=== PATIENT | male | born 1955 | race Caucasian/White ===

== ENCOUNTER 2022-03-07 14:55 | Emergency (ER) | payer OTHER ==
--- NOTE | 2022-03-07 15:32 | ERPHSYRPT ---
- History of Present Illness Time Seen by Provider: 03/07/22 15:15 Source: patient Exam Limitations: no limitations Patient Subjective Stated Complaint: C/O cough and increasing SOB that began around . Patient is seeking treatment today due to the SOB has becom e much worse in the past week with new intermittent sharp pains in both of his mid to lower sides. No pain at this time. Triage Nursing Assessment: Patient brought down to ED from the [facility] in a W/C wearing portable oxgyen at 2L per N/C; patient does not typically utilize oxygen therapy at home. [facility] states patient was sating 89-90% on room air so they applied the 02. Patient sating 94% here on room air; 02 @ 2L reapplied and 02 sats increased to 97% with the 02 therapy. Patient has a dry, non- productive cough. Expiratory wheezing noted to upper lobes and bases are diminished. Breathing is deep but short and labored. 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 Patient was initially evaluated at [facility] and they performed viral studies including COVID, influenza A and B and RSV. These tests were negative per his report. At [facility] clinic his room air oxygenation level was 89-92%. He was then sent to the emergency department for further evaluation management. Patient smokes cigarettes every day. He is on an albuterol inhaler. He denies chest pain. He has no abdominal pain. He has had no nausea vomiting or diarrhea. Timing/Duration: week(s) (3), worse Cough Quality/Degree: moderate, dry cough Possible Cause: no prior episodes Modifying Factors: Improves With: albuterol nebulizer (Improved), coughing, ox ygen Associated Symptoms: cough, shortness of breath, wheezing (Expiratory) Allergies/Adverse Reactions: No Known Drug Allergies Allergy (Verified 03/07/22 15:10) Home Medications: Budesonide/Glycopyr/Formoterol [Breztri Aerosphere Inhaler] 2 puff PO BID 03/07/22 [History] Hx Tetanus, Diphtheria Vaccination/Date Given: Yes (Not tetanus) Hx Influenza Vaccination/Date Given: No Hx Pneumococcal Vaccination/Date Given: No Immunizations Up to Date: Yes Travel Risk - International Travel Have you traveled outside of the country in past 3 weeks: No - Coronavirus Screening Are you exhibiting any of the following symptoms?: Yes Symptoms: Cough: New Onset, Shortness of Breath Close contact with a COVID-19 positive Pt in past 14-21 Days: No - Vaccine Status Have you recieved a Covid-19 vaccination: No - Review of Systems Constitutional: No Symptoms Eyes: No Symptoms Ears, Nose, & Throat: No Symptoms Respiratory: Cough, Dyspnea Cardiac: No Symptoms Abdominal/Gastrointestinal: No Symptoms Genitourinary Symptoms: No Symptoms Musculoskeletal: No Symptoms Skin: No Symptoms Neurological: No Symptoms Psychological: No Symptoms Endocrine: No Symptoms Hematologic/Lymphatic: No Symptoms Immunological/Allergic: No Symptoms All Other Systems: Reviewed and Negative - Past Medical History Pertinent Past Medical History: Yes Respiratory History: COPD - Past Surgical History Past Surgical History: No - Social History Smoking Status: Current every day smoker How long have you smoked: 50 years Exposure to second hand smoke: No Drug Use: none Patient Lives Alone: No - Nursing Vital Signs Nursing Vital Signs: Initial Vital Signs Temperature 98.1 F 03/07/22 14:56 Pulse Rate 87 03/07/22 14:56 Respiratory Rate 18 03/07/22 14:56 Blood Pressure 161/119 03/07/22 14:56 O2 Sat by Pulse Oximetry 94 L 03/07/22 14:56 Pain Scale Pain Intensity 0 - Physical Exam General Appearance: no apparent distress, alert, obese Eye Exam: PERRL/EOMI, eyes nml inspection Ears, Nose, Throat Exam: normal ENT inspection, moist mucous membranes Neck Exam: normal inspection, non-tender, supple, full range of motion Respiratory Exam: wheezing (Mild bilateral expiratory wheezing), No chest tenderness, No respiratory distress Cardiovascular Exam: regular rate/rhythm, normal heart sounds, normal peripheral pulses Gastrointestinal/Abdomen Exam: soft, normal bowel sounds, No tenderness Rectal Exam: not done Back Exam: normal inspection, normal range of motion, No CVA tenderness, No vertebral tenderness Extremity Exam: normal inspection, normal range of motion, pelvis stable Neurologic Exam: alert, oriented x 3, cooperative, software tools build engineer II-XII nml as tested, normal mood/affect, nml cerebellar function, nml station & gait, sensation nml Skin Exam: normal color, warm, dry Lymphatic Exam: No adenopathy SpO2 Interpretation: normal SpO2: 97 O2 Delivery: Room Air - Course Nursing assessment & vital signs reviewed: Yes EKG Interpreted by Me: RATE (88), Sinus Rhythm, NORMAL AXIS, LAFB, Right Bundle Branch Block, Other (BCs. No acute ischemic changes) Ordered Tests: Active Orders 24 hr Category Date Time Status EKG-ER Only STAT Care 03/07/22 15:32 Active IV Insertion STAT Care 03/07/22 15:32 Active Pulse Oximetry (ED) STAT Care 03/07/22 15:32 Active CHEST 1 VIEW (PORTABLE) Stat Exams 03/07/22 15:32 Completed CHEST WITH CONTRAST [CT] Stat Exams 03/07/22 16:22 Completed CBC W DIFF Stat Lab 03/07/22 15:30 Completed CMP Stat Lab 03/07/22 15:30 Completed D-DIMER QUANTITATIVE Stat Lab 03/07/22 15:30 Completed NT PRO BNP Stat Lab 03/07/22 15:30 Completed TROPONIN Q4H Lab 03/07/22 15:30 Completed TROPONIN Q4H Lab 03/07/22 19:45 Ordered TROPONIN Q4H Lab 03/07/22 23:45 Ordered Respiratory Therapy Assessment DAILY RT 03/07/22 16:08 Active Medication Summary Discontinued Medications Generic Name Dose Route Start Last Admin Trade Name Freq PRN Reason Stop Dose Admin Albuterol Sulfate Confirm 03/07/22 15:54 Albuterol Sulfate 2.5 Mg/3 Ml Neb Administered 03/07/22 15:55 Dose 2.5 mg IH .STK-MED ONE Albuterol Sulfate 2.5 mg 03/07/22 15:50 03/07/22 15:54 Albuterol Sulfate 2.5 Mg/3 Ml Neb IH 03/07/22 15:51 2.5 mg STAT ONE Administration Methylprednisolone Sodium 0 mg 03/07/22 16:21 03/07/22 16:30 Succinate 125 mg/ Sterile IV 03/07/22 16:22 125 mg Water 2 ml STAT ONE Administration Sodium Chloride 500 mls @ 500 mls/hr 03/07/22 16:21 03/07/22 16:31 Sodium Chloride 0.9% 500 Ml IV 03/07/22 17:20 500 mls/hr .Q1H ONE Administration Sodium Chloride Confirm 03/07/22 16:26 Sodium Chloride 0.9% 500 Ml Administered 03/07/22 16:27 Dose 500 mls @ ud IV .STK-MED ONE Methylprednisolone Sodium Succinate Confirm 03/07/22 16:26 Methylprednis Sod Succ 125 Mg/2 Ml Vial Administered 03/07/22 16:27 Dose 125 mg .ROUTE .STK-MED ONE Sterile Water Confirm 03/07/22 16:26 Water For Injection,Sterile 10 Ml Vial Administered 03/07/22 16:27 Dose 10 ml IJ .STK-MED ONE Lab/Rad Data: Laboratory Result Diagrams 03/07/22 15:30 03/07/22 15:30 Laboratory Results 03/07/22 03/07/22 03/07/22 Range/Units 15:30 15:30 15:30 WBC (4.0-10.5) x10^3/uL RBC (4.1-5.6) x10^6/uL Hgb (12.5-18.0) g/dL Hct (42-50) % MCV (78-100) fL MCH (26-32) pg MCHC (32-36) g/dL RDW (11.5-14.0) % Plt Count (150-450) x10^3/uL MPV (7.5-11.0) fL Gran % (36.0-66.0) % Immature Gran % (Auto) (0.00-0.4) % Nucleat RBC Rel Count (0.00-0.1) % Eos # (Auto) (0-0.5) x10^3/uL Immature Gran # (Auto) (0.00-0.03) x10^3u/L Absolute Lymphs (auto) (1.0-4.6) x10^3/uL Absolute Monos (auto) (0.0-1.3) x10^3/uL Absolute Nucleated RBC (0.00-0.01) x10^3u/L Lymphocytes % (24.0-44.0) % Monocytes % (0.0-12.0) % Eosinophils % (0.00-5.0) % Basophils % (0.0-0.4) % Absolute Granulocytes (1.4-6.9) x10^3/uL Basophils # (0-0.4) x10^3/uL D-Dimer 0.62 H* (0.0-0.50) mg/L Sodium 136 L (137-145) mmol/L Potassium 4.2 (3.5-5.1) mmol/L Chloride 103 (98-107) mmol/L Carbon Dioxide 28 (22-30) mmol/L Anion Gap 9.1 (5-15) MEQ/L BUN 14 (9-20) mg/dL Creatinine 0.86 (0.66-1.25) mg/dL Estimated GFR > 60.0 ML/MIN Glucose 105 (74-106) mg/dL Calcium 9.3 (8.4-10.2) mg/dL Total Bilirubin 0.80 (0.2-1.3) mg/dL AST 37 (17-59) U/L ALT 41 (0-50) U/L Alkaline Phosphatase 71 (38-126) U/L Troponin I < 0.012 (0.000-0.034) ng/mL NT-Pro-B Natriuret Pep 93.2 (0-900) pg/mL Serum Total Protein 7.7 (6.3-8.2) g/dL Albumin 4.5 (3.5-5.0) g/dL 03/07/22 Range/Units 15:30 WBC 7.9 (4.0-10.5) x10^3/uL RBC 5.00 (4.1-5.6) x10^6/uL Hgb 16.4 (12.5-18.0) g/dL Hct 49.1 (42-50) % MCV 98.2 (78-100) fL MCH 32.8 H (26-32) pg MCHC 33.4 (32-36) g/dL RDW 12.3 (11.5-14.0) % Plt Count 274 (150-450) x10^3/uL MPV 9.2 (7.5-11.0) fL Gran % 42.8 (36.0-66.0) % Immature Gran % (Auto) 0.3 (0.00-0.4) % Nucleat RBC Rel Count 0.0 (0.00-0.1) % Eos # (Auto) 0.43 (0-0.5) x10^3/uL Immature Gran # (Auto) 0.02 (0.00-0.03) x10^3u/L Absolute Lymphs (auto) 3.09 (1.0-4.6) x10^3/uL Absolute Monos (auto) 0.90 (0.0-1.3) x10^3/uL Absolute Nucleated RBC 0.00 (0.00-0.01) x10^3u/L Lymphocytes % 39.1 (24.0-44.0) % Monocytes % 11.4 (0.0-12.0) % Eosinophils % 5.4 H (0.00-5.0) % Basophils % 1.0 (0.0-0.4) % Absolute Granulocytes 3.39 (1.4-6.9) x10^3/uL Basophils # 0.08 (0-0.4) x10^3/uL D-Dimer (0.0-0.50) mg/L Sodium (137-145) mmol/L Potassium (3.5-5.1) mmol/L Chloride (98-107) mmol/L Carbon Dioxide (22-30) mmol/L Anion Gap (5-15) MEQ/L BUN (9-20) mg/dL Creatinine (0.66-1.25) mg/dL Estimated GFR ML/MIN Glucose (74-106) mg/dL Calcium (8.4-10.2) mg/dL Total Bilirubin (0.2-1.3) mg/dL AST (17-59) U/L ALT (0-50) U/L Alkaline Phosphatase (38-126) U/L Troponin I (0.000-0.034) ng/mL NT-Pro-B Natriuret Pep (0-900) pg/mL Serum Total Protein (6.3-8.2) g/dL Albumin (3.5-5.0) g/dL - Progress Progress: improved Air Movement: fair Progress Note: 03/07/22 17:36 CTA shows subtle bilateral lower patchy airspace disease. The study is negative for pulmonary embolus Blood Culture(s) Obtained: Yes Counseled pt/family regarding: lab results, diagnosis, rad results - Departure Departure Disposition: Home Clinical Impression: Pneumonia Condition: Stable Critical Care Time: No Referrals: MATTIE VAZQUEZ NP [Primary Care Provider] - Follow up/PCP as directed Additional Instructions: Drink plenty of clear liquids. Stop smoking. Take your antibiotics as prescribed. Use your nebulizer every 4 hours while awake. Follow-up with your primary care provider for persistent symptoms. Prescriptions: Hydrocodone/Acetaminophen [Hydrocodone-Acetamn 7.5-325/15] 10 ml PO Q8H PRN PRN #120 ml MDD 30 ml PRN Reason: Cough Prednisone 10 mg [Deltasone 10 mg] 10 mg PO TID #12 tablet Albuterol 2.5 mg/3 ml Neb [Proventil 2.5 mg/3 ml Neb] 2.5 mg IH Q6H #25 units Azithromycin 250 mg [Zithromax 250 MG TABLET] 250 mg PO ZPACK #6 tablet
[2022-03-07 15:42] LABS: Absolute Neutrophil Ct (ANC) 3.39 x10^3/uL (1.4-6.9); Basophil (Absolute #) 0.08 x10^3/uL (0-0.4); Eosinophil % 5.4 % (0.00-5.0); Eosinophil (Absolute #) 0.43 x10^3/uL (0-0.5); Hematocrit 49.1 % (42-50); Hemoglobin 16.4 g/dL (12.5-18.0); Lymphocyte (Absolute #) 3.09 x10^3/uL (1.0-4.6); Lymphocytes % 39.1 % (24.0-44.0); Mean Cell Volume 98.2 fL (78-100); Mean Corpuscular Hemoglobin 32.8 pg (26-32); Mean Corpuscular Hgb Concent. 33.4 g/dL (32-36); Mean Platelet Volume 9.2 fL (7.5-11.0); Monocytes % 11.4 % (0.0-12.0); Neutrophil % 42.8 % (36.0-66.0); Platelet Count 274 x10^3/uL (150-450); Red Cell Distribution Width 12.3 % (11.5-14.0); White Blood Count 7.9 x10^3/uL (4.0-10.5)
[2022-03-07] MEDS ORDERED: PROVENTIL 2.5 MG/3 ML NEB IH ONE ×2 (15:50→15:54)
[2022-03-07 16:06] LABS: ALBUMIN 4.5 g/dL (3.5-5.0); ALKALINE PHOSPHATASE 71 U/L (38-126); ANION GAP 9.1 MEQ/L (5-15); BLOOD UREA NITROGEN 14 mg/dL (9-20); CHLORIDE 103 mmol/L (98-107); Calcium 9.3 mg/dL (8.4-10.2); Carbon Dioxide 28 mmol/L (22-30); Creatinine 1 0.86 mg/dL (0.66-1.25); EST GLOMERULAR FILTRATION RATE > 60.0 ML/MIN; Glucose 105 mg/dL (74-106); NT PRO BNP 93.2 pg/mL (0-900); Potassium 4.2 mmol/L (3.5-5.1); SGOT/AST 37 U/L (17-59); SGPT/ALT 41 U/L (0-50); SODIUM 136 mmol/L (137-145); Total Protein 7.7 g/dL (6.3-8.2)
[2022-03-07] MEDS ORDERED: solu-MEDROL 125 MG, Sterile H2O 10 ml 2 ML IV ONE ×2 (16:21)
[2022-03-07] MEDS ORDERED: Sodium Chloride 0.9% 500 ML 500 ML IV ONE ×2 (16:21→16:26)
[2022-03-07] MEDS ORDERED: solu-MEDROL ONE (16:26)
[2022-03-07] MEDS ORDERED: Sterile H2O 10 ml IJ ONE (16:26)
--- NOTE | 2022-03-07 16:26 | XRAY ---
Indication: Cough and short of breath. Comparison: None Portable chest inflated and clear. Heart not enlarged for AP portable technique. Bony thorax intact with mild osteopenia and degenerative changes. Impression: Nonacute chest with chronic bony findings.
--- NOTE | 2022-03-07 17:22 | XRAY ---
Indication: Short of breath. Elevated d-dimer. COPD. Multiple contiguous images obtained through the chest using 100 cc Isovue 370 contrast and PE protocol. Comparison: None Good opacification of the pulmonary arteries to include the lobar and segmental branches. No pulmonary embolus. Heart not enlarged. Aorta is minimally etcher sclerotic without aneurysm/dissection. Tiny left hilar calcified nodes. No pathologic mediastinal lymphadenopathy. Lungs hyperinflated with mild bilateral subpleural cystic changes and left posterior gutter focal fibrosis/scarring. Both lower lobes demonstrates subtle subpleural patchy airspace disease without consolidation/effusion. Bony thorax intact with minimal degenerative changes throughout the spine and old right 8/9 rib fractures. Limited upper abdomen demonstrates fatty liver and splenic calcified granulomas. Impression: 1. Negative pulmonary embolus. 2. Subtle bilateral lower lobe patchy airspace disease. Rule out Covid 19 pneumonia. 3. Incidental fatty liver, chronic bony findings, and old granulomatous disease.
[2022-03-07] MEDS ORDERED: ROCEPHIN 1 Gm-D5w 50 ml Bag** 1 G/50 ML IVPB IV STA (17:33)
[2022-03-07] MEDS ORDERED: ROCEPHIN 1 Gm-D5w 50 ml Bag** 1 G/50 ML IVPB IV ONE (17:38)
[2022-03-07 17:49] VITALS: BP 122/74; PULSE 88; O2SAT 94
== END 2022-03-07 18:12 | disposition home or self-care (01) ==
LOC: ED 14:55
DX: J18.9 Pneumonia, unspecified organism (principal); R06.02 Shortness of breath; R05.9 Cough, unspecified; J44.9 Chronic obstructive pulmonary disease, unspecified; Z79.891 Long term (current) use of opiate analgesic; Z79.52 Long term (current) use of systemic steroids; Z79.899 Other long term (current) drug therapy; Z28.310 Unvaccinated for COVID-19; Z72.0 Tobacco use
CPT/HCPCS: 36000; 36415; 71045; 71260; 80053; 83880; 84484; 85025; 85379; 93005; 94640; 94760; 96374; 99284; J0696; J2930; J7609; A9270-GY